=== PATIENT | male | born 1950 | race Caucasian/White ===

== ENCOUNTER 2020-06-01 14:01 | Inpatient (IN) | payer MEDICARE ==
[~2020-06-01] VITALS: Ht 177.8 cm; Wt 73.7 kg
[2020-06-01] MEDS ORDERED: IV NS 0.9% 1,000 ML BAG IV ONE (14:30)
--- NOTE | 2020-06-01 14:30 | NUR ---
Patient came in to the er [facility] from home, c/o weakness x 5 days, sent by PMD. On room air, breathing evenly and unlabored. connected to the monitor and pulse ox. kept comfortable, will continue to monitor accordingly.
[2020-06-01 15:13] LABS: BASOPHILS % (AUTO) 0.8 % (0.0-2.0); EOSINOPHILS % (AUTO) 0.2 % (0.0-6.0); HEMATOCRIT 37 % (39-51); HEMOGLOBIN 12.4 g/dL (13.5-17.5); LYMPHOCYTES # (AUTO) 0.3 /CMM (0.8-4.8); MEAN CORPUSCULAR HGB CONC 33 g/dl (31.0-36.0); MEAN CORPUSCULAR VOLUME 90 fL (80-96); MONOCYTES # (AUTO) 0.6 /CMM (0.1-1.30); MONOCYTES % (AUTO) 29.3 % (2.0-12.0); NEUTROPHILS # (AUTO) 1.2 /CMM (1.8-8.9); NEUTROPHILS % (AUTO) 54.7 % (43.0-81.0); PLATELET COUNT (AUTO) 155 /CMM (150-450); RED BLOOD CELL COUNT(AUTO) 4.17 MIL/uL (4.5-6.0); WHITE BLOOD COUNT (AUTO) 2.1 K/uL (4.3-11.0)
[2020-06-01 15:21] LABS: CALCIUM, SERUM 9.1 mg/dL (8.5-10.1); CARBON DIOXIDE 25 mmol/L (21-32); CHLORIDE 96 mmol/L (98-107); CREATININE 1.2 mg/dL (0.6-1.3); GLUCOSE 134 mg/dL (74-106); POTASSIUM 4.6 mmol/L (3.5-5.1); SODIUM SERUM 130 mmol/L (136-145); UREA NITROGEN, BLOOD 20 mg/dL (7-18)
[2020-06-01 15:28] LABS: ALANINE AMINOTRANSFERASE 48 U/L (12-78); ALBUMIN 3.1 g/dL (3.4-5.0); ALKALINE PHOSPHATASE 159 U/L (46-116); ASPARTATE AMINOTRANSFERASE 49 U/L (15-37); BILIRUBIN,DIRECT 1.1 mg/dL (0.0-0.2); LIPASE 132 U/L (73-393); TOTAL PROTEIN, SERUM 6.3 g/dL (6.4-8.2)
[2020-06-01 15:54] LABS: BAND % (MANUAL) 2 % (0.0-5.0); LYMPHOCYTES % (MANUAL) 13 % (16-48); MONOCYTES % (MANUAL) 29 % (0-11.0); NEUTROPHILS % (MANUAL) 56 (42-76)
[2020-06-01] MEDS ORDERED: FINA5TAB11 PO (16:23)
[2020-06-01] MEDS ORDERED: ONDA-97 PO (16:23)
[2020-06-01] MEDS ORDERED: OXYC10TA49 PO (16:23)
[2020-06-01] MEDS ORDERED: RIVA10TA PO (16:23)
[2020-06-01] MEDS ORDERED: GABA-532 PO (16:23)
--- NOTE | 2020-06-01 16:39 | NUR ---
covid swab collected and sent to lab
--- NOTE | 2020-06-01 17:33 | NUR ---
COVID19 TEST NEGATIVE.
--- NOTE | 2020-06-01 17:46 | NUR ---
ROOM ASSIGNEMENT: [id number]
[2020-06-01] MEDS ORDERED: ONDANSETRON HCL/PF 4 MG/2 ML VIAL IVP PRN (18:00)
[2020-06-01] MEDS ORDERED: ACETAMINOPHEN 325 MG TABLET PO PRN (18:00)
[2020-06-01] MEDS ORDERED: ONDANSETRON 4 MG TAB.RAPDIS PO PRN (18:00)
[2020-06-01] MEDS ORDERED: HYDROCODONE/APAP 5/325MG TABLET PO PRN (18:00)
[2020-06-01] MEDS ORDERED: MAGNESIUM HYDROXIDE 30 ML UDC PO PRN (18:00)
[2020-06-01] MEDS ORDERED: Z GUARD REMEDY 2 OZ OINT TP PRN (18:00)
[2020-06-01] MEDS ORDERED: MORPHINE SULFATE INJ 2 MG/ML DISP.SYRIN IV PRN (18:00)
[2020-06-01] MEDS ORDERED: MAG HYDROX/AL HYDROX/SIMETH 30 ML UDC PO PRN (18:00)
--- NOTE | 2020-06-01 18:22 | NUR ---
wheeled patient via gurney accompanied by RN and emt in no distress. RN at bedside to assume care.
[2020-06-01] MEDS: IV NS 0.9% 1,000 ML IV SCH (18:26)
--- NOTE | 2020-06-01 19:35 | NUR ---
MS ANNE POWELL NOTES PATIENT IS WATCHING TV IN BED. A/O X4. ON RA, NO SOB/ ACUTE RESPIRATORY DISTRESS NOTED. IV IN R HAND #18G IS PATENT AND INTACT RUNNING NS @ 75MLS/HR. PT DENIES ANY PAIN AT THE MOMENT. BED IS IN LOWEST LOCKED POSITION WITH SIDE RAILS UP X2 SEMI FOWLERS. CALL LIGHT IS WITHIN REACH. WILL CONTINUE TO MONITOR.
[2020-06-01 20:00] VITALS: BP 105/62
[2020-06-01] MEDS: oxyCODONE HCL SR 10MG TAB.SR.12H PO SCH (20:27)
[2020-06-01] MEDS: RIVAROXABAN 10 MG TABLET PO SCH (20:28)
[2020-06-01] MEDS: GABAPENTIN 300 MG CAPSULE PO SCH (20:30)
[2020-06-02] MEDS: IV NS 0.9% 1,000 ML IV SCH ×2 (06:32→20:06)
--- NOTE | 2020-06-02 06:34 | NUR ---
MS RN CLOSE NOTES PATIENT IS WATCHING TV IN BED. A/O X4. ON RA, NO SOB/ ACUTE RESPIRATORY DISTRESS NOTED. IV IN R HAND #18G IS PATENT AND INTACT RUNNING NS @ 75MLS/HR. COLOSTOMY BAG IN PLACE. PT DENIES ANY PAIN AT THE MOMENT. PT IS ABLE TO AMBULATE. BED IS IN LOWEST LOCKED POSITION WITH SIDE RAILS UP X2, SEMI FOWLERS. CALL LIGHT IS WITHIN REACH. WILL ENDORSE TO AM NURSE.
[2020-06-02 07:18] LABS: BASOPHILS % (AUTO) 0.8 % (0.0-2.0); EOSINOPHILS % (AUTO) 2.4 % (0.0-6.0); HEMATOCRIT 35 % (39-51); HEMOGLOBIN 11.5 g/dL (13.5-17.5); LYMPHOCYTES # (AUTO) 0.7 /CMM (0.8-4.8); LYMPHOCYTES % (AUTO) 27.8 % (20.0-44.0); MEAN CORPUSCULAR HGB CONC 33 g/dl (31.0-36.0); MEAN CORPUSCULAR VOLUME 91 fL (80-96); MONOCYTES # (AUTO) 0.7 /CMM (0.1-1.30); MONOCYTES % (AUTO) 27.5 % (2.0-12.0); NEUTROPHILS # (AUTO) 1.1 /CMM (1.8-8.9); NEUTROPHILS % (AUTO) 41.5 % (43.0-81.0); PLATELET COUNT (AUTO) 146 /CMM (150-450); RED BLOOD CELL COUNT(AUTO) 3.83 MIL/uL (4.5-6.0); WHITE BLOOD COUNT (AUTO) 2.7 K/uL (4.3-11.0)
[2020-06-02 07:31] LABS: CREATININE 0.9 mg/dL (0.6-1.3); MAGNESIUM 2.2 mg/dL (1.8-2.4); PHOSPHORUS 3.3 mg/dL (2.5-4.9); POTASSIUM 3.8 mmol/L (3.5-5.1)
[2020-06-02 08:00] VITALS: BP 109/68
--- NOTE | 2020-06-02 08:08 | NUR ---
MS RN OPENING NOTE PATIENT IN BED RESTING COMFORTABLY. PATIENT IN NO ACUTE DISTRESS. NO SOB NOTED. PATIENT BREATHING IS EVEN AND UNLABORED. SAFETY PRECAUTIONS IN PLACE. PATIENT BED IS LOCKED AND IN LOWEST POSITION. CALL LIGHT WITHIN REACH. WILL CONTINUE TO MONITOR.
--- NOTE | 2020-06-02 08:28 | NUR ---
MS RN NOTE DR. FARLEY SEEN AND EVALUATED PATIENT. MD ORDER TO CHANGE DIET TO SOFT DIET.
[2020-06-02] MEDS: oxyCODONE HCL SR 10MG TAB.SR.12H PO SCH ×2 (08:32→20:26)
[2020-06-02] MEDS: FINASTERIDE (5 MG) 5 MG TABLET PO SCH (08:32)
[2020-06-02] MEDS: GABAPENTIN 300 MG CAPSULE PO SCH ×2 (08:32→16:23)
[2020-06-02 10:19] LABS: BAND % (MANUAL) 2 % (0.0-5.0); LYMPHOCYTES % (MANUAL) 22 % (16-48); MONOCYTES % (MANUAL) 13 % (0-11.0); NEUTROPHILS % (MANUAL) 63 (42-76)
[2020-06-02] MEDS ORDERED: IOHEXOL-300 100 ML VIAL IV ONE (12:38)
[2020-06-02] MEDS ORDERED: IV NS 0.9% 250 ML IV ONE (12:38)
--- NOTE | 2020-06-02 15:04 | NUR ---
MS RN NOTE INFORMED DR. FARLEY OF CT ABDOMEN RESULTS. MD IS AWARE AND PER MD ORDER TO PLACE PATIENT BACK ON SOFT DIET.
--- NOTE | 2020-06-02 15:27 | NUR ---
MS RN NOTE ASKED PATIENT IF HE HAS RECEIVED THE FLU VACCINE. PATIENT STATED " I HAVE NOT AND I DO NOT WANT THE VACCINE". EDUCATED RISKS VS BENEFITS. PATIENT CONTINUED TO REFUSE FLU VACCINE.
[2020-06-02 16:00] VITALS: BP 100/64
[2020-06-02] MEDS: RIVAROXABAN 10 MG TABLET PO SCH (16:24)
[2020-06-02] MEDS ORDERED: HEPARIN INFUSION/D5W 500 ML IV PRN (17:30)
--- NOTE | 2020-06-02 18:47 | NUR ---
MS RN NOTE INFORMED DR. FARLEY OF DR. JONES ORDER FOR HEPARIN DRIP. PER DR. FARLEY HE IS MADE AWARE AND IS OKAY WITH HEPARIN DRIP TO START WITH XARELTO TO HOLD.
--- NOTE | 2020-06-02 19:24 | NUR ---
MS RN NOTE PATIENT ON HEPARIN DRIP CONFIRMED FORM FAST WITH JAMMIE FROM PHARMACY AND STARTED HEPARIN DRIP ONCE PT AND INR RESULTED. HEPARIN DRIP ONGOING AT THIS TIME AT 27ML/HR. EXPLAINED TO REPORT ANY SIGNS AND SYMPTOMS OF MEDICATION. PATIENT VERBALIZED UNDERSTANDING. DR. INGRAM AND DR. FARLEY MADE AWARE.
--- NOTE | 2020-06-02 19:25 | NUR ---
MS RN CLOSING NOTE PATIENT IN BED RESTING COMFORTABLY. PATIENT IN NO ACUTE DISTRESS. NO SOB NOTED. PATIENT BREATHING IS EVEN AND UNLABORED. SAFETY PRECAUTIONS IN PLACE. EXPLAINED ALL DUE MEDS. PATIENT ON CURRENT HEPARIN DRIP AND PLACED ORDER FOR REDRAW OF PT/INR 6 HOURS AFTER INITIAL START OF DRIP. PATIENT KEPT CLEAN, DRY, AND COMFORTABLE THROUGHOUT SHIFT. NEEDS AND CONCERNS ADDRESSED. PATIENT BED IS LOCKED AND IN LOWEST POSITION. CALL LIGHT WITHIN REACH. WILL ENDORSE CARE TO PM SHIFT FOR GAYATRI.
--- NOTE | 2020-06-02 19:35 | NUR ---
MS ANNE OPEN NOTES PATIENT IS WATCHING TV IN BED. A/O X4. ON RA, NO SOB/ ACUTE RESPIRATORY DISTRESS NOTED. IV IN R HAND #18G IS PATENT AND INTACT. PT DENIES ANY PAIN AT THE MOMENT. BED IS IN LOWEST LOCKED POSITION WITH SIDE RAILS UP X2, SEMI FOWLERS. CALL LIGHT IS WITHIN REACH. WILL CONTINUE TO MONITOR.
[2020-06-02 20:00] VITALS: BP 103/62
--- NOTE | 2020-06-03 02:27 | NUR ---
MS RN NOTES RECEIVED CALL FROM LAB REGARDING PT'S CRITICAL LAB RESULTS. aPTT IS 170. WILL [employer] CASE[employer] .
--- NOTE | 2020-06-03 02:30 | NUR ---
MS RN NOTES PAGED MD TO NOTIFY HIM OF PT'S aPTT RESULTS(170). WAITING FOR MD TO CALL BACK FOR ORDERS.
--- NOTE | 2020-06-03 03:17 | NUR ---
MS RN NOTES MD REPLIED BACK WITH ORDERS TO PUT THE DRIP ON HOLD AND TO REPEAT PT/INR IN 2 HOURS. ORDERS NOTED AND CARRIED OUT.
[2020-06-03 04:48] LABS: BASOPHILS # (AUTO) 0.1 /CMM (0.0-0.2); EOSINOPHILS % (AUTO) 1.4 % (0.0-6.0); HEMATOCRIT 33 % (39-51); HEMOGLOBIN 11.1 g/dL (13.5-17.5); LYMPHOCYTES # (AUTO) 0.8 /CMM (0.8-4.8); LYMPHOCYTES % (AUTO) 25.9 % (20.0-44.0); MEAN CORPUSCULAR HGB CONC 34 g/dl (31.0-36.0); MEAN CORPUSCULAR VOLUME 90 fL (80-96); MONOCYTES # (AUTO) 0.7 /CMM (0.1-1.30); MONOCYTES % (AUTO) 24.5 % (2.0-12.0); NEUTROPHILS # (AUTO) 1.4 /CMM (1.8-8.9); NEUTROPHILS % (AUTO) 46.2 % (43.0-81.0); PLATELET COUNT (AUTO) 151 /CMM (150-450)
--- NOTE | 2020-06-03 05:25 | NUR ---
MS RN NOTES NOTIFIED DR WITH PT'S aPTT RESULTS: 42.8 PER MD, DO NOT GIVE A BOLUS, JUST INCREASE DRIP BY 2 UNITS/KG. ORDER NOTED AND CARRIED OUT.
--- NOTE | 2020-06-03 05:30 | NUR ---
MS RN NOTES PER PROTOCOL, INCREASE DRIP BY 2UNITS/KG. RATE IS NOW 1500 UNITS/HR. WILL CONTINUE TO MONITOR PT FOR ANY SIGNS OF BLEEDING.
[2020-06-03 05:33] LABS: CALCIUM, SERUM 8.7 mg/dL (8.5-10.1); CREATININE 0.9 mg/dL (0.6-1.3); MAGNESIUM 2.1 mg/dL (1.8-2.4); PHOSPHORUS 3.6 mg/dL (2.5-4.9); POTASSIUM 4.6 mmol/L (3.5-5.1)
[2020-06-03 05:49] LABS: THYROID STIMULATING HORMONE 1.725 uIU/mL (0.358-3.74); URIC ACID 5.4 mg/dL (2.6-7.2)
[2020-06-03 06:18] LABS: EOSINOPHILS % (MANUAL) 3 % (0-4); LYMPHOCYTES % (MANUAL) 18 % (16-48); MONOCYTES % (MANUAL) 26 % (0-11.0); NEUTROPHILS % (MANUAL) 53 (42-76)
--- NOTE | 2020-06-03 07:18 | NUR ---
MS RN NOTES RECEIVED PATIENT IN BED ASLEEP, AROUSABLE TO VERBAL AND TACTILE STIMULI. ALERT AND ORIENTED X4. NO SOB. DENIES ANY C/O PAIN NOR DISCOMFORT AT THIS TIME. RIGHT HAND # 18 INTACT AND PATENT INFUSING HEPARIN DRIP ORDERED WITHOUT S/S OF BLEEDING/BRUISING OBSERVED. RIGHT UPPER CHEST PORT-A CATH INTACT. BED IN LOWEST POSITION, LOCKED. AMBULATORY WITH STEADY GAIT. ON. CALL LIGHT WITHIN REACH. ABLE TO VERBALIZE NEEDS.
--- NOTE | 2020-06-03 07:21 | NUR ---
MS RN CLOSE NOTES PT IS LAYING IN BED WATCHING TV. A/O X4. ON RA, NO SOB/ ACUTE RESPIRATORY DISTRESS NOTED. IV IN R HAND #18G IS PATENT AND INTACT. HEPARIN DRIP RUNNING @ 1500 UNITS/HR. PT DENIES ANY PAIN AT THE MOMENT. PT IS AMBULATORY. BED IS IN LOWEST LOCKED POSITION WITH SIDE RAILS UP X2, SEMI FOWLERS. CALL LIGHT IS WITHIN REACH. WILL ENDORSE TO AM NURSE.
[2020-06-03 07:40] LABS: URINE SODIUM, RANDOM 7 mmol/l (40-220)
[2020-06-03 07:50] LABS: APPEARANCE,URINE CLEAR (CLEAR); BILIRUBIN,URINE NEGATIVE (NEGATIVE); BLOOD, URINE TRACE-INTA Ery/uL (NEGATIVE); COLOR,URINE YELLOW (YELLOW); KETONES,URINE NEGATIVE (NEGATIVE); LEUKOCYTE ESTERASE ,URINE NEGATIVE (NEGATIVE); NITRITE, URINE NEGATIVE (NEGATIVE); PH,URINE 5.5 (5.0-8.0); PROTEIN,URINE 30 mg/dl (NEGATIVE); UGLUCOSE NEGATIVE (NEGATIVE); UROBILINOGEN,URINE 0.2 EU/dL (0.2)
[2020-06-03 08:10] LABS: BACTERIA,URINE Few /HPF (None Seen); RBC,URINE 0-2 /HPF (0-2); SQUAMOUS EPITHELIAL CELL,UR Rare /HPF (None Seen)
[2020-06-03] MEDS: FINASTERIDE (5 MG) 5 MG TABLET PO SCH (09:13)
[2020-06-03] MEDS: GABAPENTIN 300 MG CAPSULE PO SCH (09:13)
[2020-06-03] MEDS: oxyCODONE HCL SR 10MG TAB.SR.12H PO SCH (09:13)
[2020-06-03 09:28] LABS: OSMOLALITY,URINE 553 mOS/kg (340-1090)
--- NOTE | 2020-06-03 13:15 | NUR ---
MS RN NOTES PATIENT ALERT AND ORIENTED X4. NO S/S OF RESPIRATORY DISTRESS. PATIENT FOR DISCHARGE. DISCHARGE PACKET, INSTRUCTIONS AND EDUCATION PROVIDED AND GIVEN TO PATIENT. PATIENT VERBALIZES UNDERSTANDING. PER PATIENT HE WILL SCHEDULE AN APPOINTMENT WITH HIS ONCOLOGIST FOR A FOLLOW UP APPOINTMENT AND FOR HIS PCP WELL. PATIENT DENIES ANY C/O PAIN NOR DISCOMFORT. ON S/P HEPARIN DRIP WITHOUT S/S OF BLEEDING/BRUISING OBSERVED. IV ACCESS REMOVED WITH CATHETER TIP INTACT WITH GAUZE DRESSING IN PLACE. ALL BELONGINGS ACCOUNTED FOR. PATIENT PICKED UP BY FRIEND AND LEFT IN STABLE CONDITION WITHOUT S/S OF ACUTE DISTRESS.
== END 2020-06-03 13:00 | disposition home health service (06) | DRG 640 ==
LOC: ER 14:07 → TELE 17:51 → MED 18:20
PROVIDERS: ADMIT Internal Medicine; ATTEND Internal Medicine
DX: E86.0 Dehydration (principal); N17.0 Acute kidney failure with tubular necrosis; E43 Unspecified severe protein-calorie malnutrition; C78.7 Secondary malignant neoplasm of liver and intrahepatic bile duct; C79.51 Secondary malignant neoplasm of bone; E87.1 Hypo-osmolality and hyponatremia; E86.1 Hypovolemia; D64.9 Anemia, unspecified; Z86.711 Personal history of pulmonary embolism; Z79.01 Long term (current) use of anticoagulants; R13.10 Dysphagia, unspecified; D72.819 Decreased white blood cell count, unspecified; Z93.3 Colostomy status; K80.20 Calculus of gallbladder without cholecystitis without obstruction; E88.09 Other disorders of plasma-protein metabolism, not elsewhere classified; Z92.21 Personal history of antineoplastic chemotherapy; N40.0 Benign prostatic hyperplasia without lower urinary tract symptoms; Z85.048 Personal history of other malignant neoplasm of rectum, rectosigmoid junction, and anus; Z68.23 Body mass index [BMI] 23.0-23.9, adult; Z86.19 Personal history of other infectious and parasitic diseases; I95.9 Hypotension, unspecified
CPT/HCPCS: 36415; 71045-TC; 74170-TC; 80048-TC; 80076-TC; 81000-TC; 82728-TC; 83540-TC; 83690-TC; 83735-TC; 83935-TC; 84100-TC; 84300-TC; 84443-TC; 84484-TC; 84550-TC; 85025-TC; 85610-TC; 85730-TC; 86850-TC; 87081-TC; 87086-TC; 87186-TC; 97116-TC; 97530-TC; C9803; G0378; J1644; J2405; J7030; J7050; Q9967